=== PATIENT | male | born 1995 | race Two or more races ===

== ENCOUNTER 2017-08-26 23:10 | Emergency (ER) | payer OTHER ==
[2017-08-26 23:31] VITALS: BP 122/71; PULSE 70; TEMP 98.5; BMI 19.0
--- NOTE | 2017-08-27 04:19 | PDOC ---
History of Present Illness - General History Source: Patient Exam Limitations: No Limitations - History of Present Illness Initial Comments: 08/27/17 04:27 The patient is a 22 year old male with no significant PMH who presents to the emergency department with RLQ abdominal pain beginning approximately 4 days ago. The patient reports his RLQ abdominal pain started suddenly and has been worsening, prompting his visit. He reports having cough, cold, and nasal congestion last week but denies these symptoms today. The patient denies vomiting or diarrhea. He denies loss of appetite. Family history is pertinent for diabetes (Father). The patient denies chest pain, shortness of breath, headache, and dizziness Denies fevers, chills, nausea, vomit, diarrhea, and constipation Denies dysuria, frequency, urgency, and hematuria. Allergies: NKDA Past surgical history: None reported. Social history: No reported cigarette, alcohol, or drug use. PCP: Dr. Fredo Larson <Gurinder Tate - Last Filed: 08/27/17 04:27> - General History Source: Patient <Franck Smith - Last Filed: 08/27/17 19:30> - General Chief Complaint: Pain Stated Complaint: PAIN Time Seen by Provider: 08/27/17 04:14 Past History <Gurinder Tate - Last Filed: 08/27/17 04:27> - Past Medical History COPD: No Other medical history: Pt denies - Suicide/Smoking/Psychosocial Hx Smoking History: Never smoked Have you smoked in the past 12 months: No Information on smoking cessation initiated: No Hx Alcohol Use: No Drug/Substance Use Hx: No Substance Use Type: None Hx Substance Use Treatment: No <Franck Smith - Last Filed: 08/27/17 19:30> - Past Medical History Allergies/Adverse Reactions: Allergies Allergy/AdvReac Type Severity Reaction Status Date / Time No Known Drug Allergies Allergy Verified 08/26/17 23:27 Home Medications: Ambulatory Orders NK [No Known Home Medication] 08/09/14 Review of Systems - Review of Systems Able to Perform ROS?: Yes Comments:: 08/27/17 04:27 CONSTITUTIONAL: Absent: fever, chills, diaphoresis, generalized weakness, malaise, loss of appetite HEENT: Absent: rhinorrhea, nasal congestion, throat pain, throat swelling, difficulty swallowing, mouth swelling, ear pain, eye pain, visual Changes CARDIOVASCULAR: Absent: chest pain, syncope, palpitations, irregular heart rate, lightheadedness , peripheral edema RESPIRATORY: Absent: cough, shortness of breath, dyspnea with exertion, orthopnea, wheezing, stridor, hemoptysis GASTROINTESTINAL: (+)RLQ abdominal pain. Absent: abdominal pain, abdominal distension, nausea, vomiting, diarrhea, constipation, melena, hematochezia GENITOURINARY: Absent: dysuria, frequency, urgency, hesitancy, hematuria, flank pain, genital pain MUSCULOSKELETAL: Absent: myalgia, arthralgia, joint swelling SKIN: Absent: rash, itching, pallor HEMATOLOGIC/IMMUNOLOGIC: Absent: easy bleeding, easy bruising, lymphadenopathy, frequent infections ENDOCRINE: Absent: unexplained weight gain, unexplained weight loss, heat intolerance, cold intolerance NEUROLOGIC: Absent: headache, focal weakness or paresthesias, dizziness, unsteady gait, seizure, mental status changes, bladder or bowel incontinence PSYCHIATRIC: Absent: anxiety, depression, suicidal or homicidal ideation, hallucinations. <Gurinder Tate - Last Filed: 08/27/17 04:27> *Physical Exam - Vital Signs Last Vital Signs Temp Pulse Resp BP Pulse Ox 98.5 F 70 18 122/71 98 08/26/17 23:28 08/26/17 23:28 08/26/17 23:28 08/26/17 23:28 08/26/17 23:28 - Physical Exam Comments: 08/27/17 04:27 GENERAL: Well developed, well nourished. Awake and alert. No acute distress. HEENT: Normocephalic, atraumatic. PERRLA, EOMI. No conjunctival pallor. Sclera are non- icteric. Moist mucous membranes. Oropharynx is clear. NECK: Supple. Full ROM. No JVD. Carotid pulses 2+ and symmetric, without bruits. No thyromegaly. No lymphadenopathy. CARDIOVASCULAR: Regular rate and rhythm. No murmurs, rubs, or gallops. Distal pulses are 2+ and symmetric. PULMONARY: No evidence of respiratory distress. Lungs clear to auscultation bilaterally. No wheezing, rales or rhonchi. ABDOMINAL: Soft. Non-tender. Non-distended. No rebound or guarding. No organomegaly. Normoactive bowel sounds. MUSCULOSKELETAL Normal range of motion at all joints. No bony deformities or tenderness. No CVA tenderness. EXTREMITIES: No cyanosis. No clubbing. No edema. No calf tenderness. SKIN: Warm and dry. Normal capillary refill. No rashes. No jaundice. NEUROLOGICAL: Alert, awake, appropriate. Cranial nerves 2-12 intact. No deficits to light touch and temperature in face, upper extremities and lower extremities. No motor deficits in the in face, upper extremities and lower extremities. Normoreflexic in the upper and lower extremities. Normal speech. Toes are downgoing bilaterally. Gait is normal without ataxia. PSYCHIATRIC: Cooperative. Good eye contact. Appropriate mood and affect. <Gurinder Tate - Last Filed: 08/27/17 04:27> - Vital Signs Last Vital Signs Temp Pulse Resp BP Pulse Ox 98.5 F 70 18 122/71 98 08/26/17 23:28 08/26/17 23:28 08/26/17 23:28 08/26/17 23:28 08/26/17 23:28 <Franck Smith - Last Filed: 08/27/17 19:30> ED Treatment Course - LABORATORY CBC & Chemistry Diagram: 08/27/17 04:32 08/27/17 04:32 <Franck Smith - Last Filed: 08/27/17 19:30> Medical Decision Making - Medical Decision Making 08/27/17 19:30 Dr. Smith: The scribe's documentation has been prepared under my direction and personally reviewed by me in its entirery. I confirm that the note above accurately reflects all work, treatment, procedures, and medical decision making performed by me. <Franck Smith - Last Filed: 08/27/17 19:30> *DC/Admit/Observation/Transfer - Attestations Scribe Attestion: 08/27/17 04:28 Documentation prepared by Gurinder Tate, acting as medical technologist blood bank for Franck Smith DO. <Gurinder Tate - Last Filed: 08/27/17 04:27> - Discharge Dispostion Admit: No <Franck Smith - Last Filed: 08/27/17 19:30> Diagnosis at time of Disposition: Abdominal pain Qualifiers: Abdominal location: right lower quadrant Qualified Code(s): R10.31 - Right lower quadrant pain - Discharge Dispostion Disposition: HOME Condition at time of disposition: Stable - Referrals Referrals: Fredo Larson MD [Primary Care Provider] - - Patient Instructions Printed Discharge Instructions: DI for Abdominal Pain-Adult - Post Discharge Activity
[2017-08-27] MEDS ORDERED: SODIUM CHLORIDE 1,000 ML IV STA (04:22)
[2017-08-27 04:55] LABS: BASO % 0.5 % (0-2.0); EOS % 4.5 % (0-4.5); HEMATOCRIT 43.9 % (35.4-49); HEMOGLOBIN 14.7 GM/dL (11.7-16.9); LYMPH % 51.4 % (8-40); MCH 26.7 pg (25.7-33.7); MCHC 33.5 g/dl (32.0-35.9); MEAN CELL VOLUME 79.8 fl (80-96); MEAN PLT VOLUME 7.5 fl (7.5-11.1); MONO % 7.8 % (3.8-10.2); NEUT % 35.8 % (42.8-82.8); PLATELET COUNT 196 K/MM3 (134-434); RDW 13.8 % (11.9-15.9); WHITE BLOOD COUNT 7.4 K/mm3 (4.0-10.0)
[2017-08-27 04:59] LABS: URINE APPEARANCE CLEAR; URINE BILIRUBIN NEGATIVE (<2.0 mg/dL); URINE BLOOD NEGATIVE (NEGATIVE); URINE COLOR YELLOW; URINE GLUCOSE (UA) NEGATIVE (NEGATIVE); URINE KETONE NEGATIVE (NEGATIVE); URINE LEUK ESTERASE NEGATIVE (NEGATIVE); URINE NITRITE NEGATIVE (NEGATIVE); URINE PROTEIN NEGATIVE (NEGATIVE); URINE UROBILINOGEN NEGATIVE mg/dL (0.2-1.0)
[2017-08-27 05:08] LABS: INR 1.05 (0.82-1.09); PROTHROMBIN TIME (PATIENT) 11.9 SEC (9.98-11.88)
[2017-08-27 06:24] LABS: ALBUMIN 3.8 g/dl (3.4-5.0); ALK PHOS 88 U/L (45-117); ANION GAP 7 (8-16); BILIRUBIN,TOTAL 0.6 mg/dL (0.2-1.0); BLOOD UREA NITROGEN 15 mg/dL (7-18); CHLORIDE 107 mmol/L (98-107); CO2 29 mmol/L (21-32); CREATININE 1.1 mg/dL (0.7-1.3); GLUCOSE,RANDOM 85 mg/dL (74-106); MAGNESIUM 2.2 mg/dL (1.8-2.4); POTASSIUM 4.2 mmol/L (3.5-5.1); SGOT/AST 18 U/L (15-37); SGPT/ALT 21 U/L (12-78); SODIUM 143 mmol/L (136-145)
[2017-08-27 06:29] LABS: LIPASE 232 U/L (73-393)
--- NOTE | 2017-08-27 09:56 | PDOC ---
*Physical Exam - Vital Signs Last Vital Signs Temp Pulse Resp BP Pulse Ox 98.5 F 70 18 122/71 98 08/26/17 23:28 08/26/17 23:28 08/26/17 23:28 08/26/17 23:28 08/26/17 23:28 - Physical Exam Comments: 08/27/17 09:45 pt endoresd to me by dr. bhatti. pt is a 22 y/o male with right sided abd pain. cbc/cmp/ua-wnl. ct abd-pelvis shows no acute pathology. repeat exam shows no abd pain. pt [facility]. will d/c with abd pain instructions. ED Treatment Course - LABORATORY CBC & Chemistry Diagram: 08/27/17 04:32 08/27/17 04:32 - ADDITIONAL ORDERS Additional order review: Laboratory Results 08/27/17 08/27/17 08/27/17 04:32 04:32 04:32 PT with INR 11.90 H INR 1.05 Sodium 143 Potassium 4.2 Chloride 107 Carbon Dioxide 29 Anion Gap 7 L BUN 15 Creatinine 1.1 Creat Clearance w eGFR > 60 Random Glucose 85 Calcium 9.0 Magnesium 2.2 Total Bilirubin 0.6 AST 18 ALT 21 Alkaline Phosphatase 88 Total Protein 7.0 Albumin 3.8 Lipase 232 Urine Color Yellow Urine Appearance Clear Urine pH 6.0 Ur Specific [place] 1.027 Urine Protein Negative Urine Glucose (UA) Negative Urine Ketones Negative Urine Blood Negative Urine Nitrite Negative Urine Bilirubin Negative Urine Urobilinogen Negative Ur Leukocyte Esterase Negative 08/27/17 04:32 RBC 5.50 MCV 79.8 L MCHC 33.5 RDW 13.8 MPV 7.5 Neutrophils % 35.8 L Lymphocytes % 51.4 H Monocytes % 7.8 Eosinophils % 4.5 Basophils % 0.5 - Medications Given in the ED: ED Medications Discontinued Medications Generic Name Dose Route Start Last Admin Trade Name Freq PRN Reason Stop Dose Admin Sodium Chloride 1,000 mls @ 1,000 mls/hr 08/27/17 04:22 08/27/17 04:40 Normal Saline - IV 08/27/17 05:21 1,000 mls/hr ASDIR STA Administration *DC/Admit/Observation/Transfer Diagnosis at time of Disposition: Abdominal pain Qualifiers: Abdominal location: right lower quadrant Qualified Code(s): R10.31 - Right lower quadrant pain - Discharge Dispostion Disposition: HOME Condition at time of disposition: Stable - Referrals Referrals: Fredo Larson MD [Primary Care Provider] - - Patient Instructions Printed Discharge Instructions: DI for Abdominal Pain-Adult - Post Discharge Activity
== END 2017-08-27 10:11 | disposition home or self-care (01) ==
LOC: JER 23:10
PROC: 3E0337Z Introduction of Electrolytic and Water Balance Substance into Peripheral Vein, Percutaneous Approach (ICD-10-PCS; principal; 2017-08-26)
DX: R10.31 Right lower quadrant pain (principal)
CPT/HCPCS: 36415; 74176-TC; 80053; 81003; 83690; 83735; 85025; 85610; 99283-25; J7030